=== PATIENT | female | born 1930 | race African-American/Black ===

== ENCOUNTER 2016-10-03 02:13 | Inpatient (IN) | payer OTHER ==
--- NOTE | ~2016-10-03 | DS ---
Discharge Summary [facility] [address] [place]. [address] NAME: JAYLON DELGADO : 30 STATUS : ADM IN [facility]#: [id number] AGE: 86 ADM/REG DATE : 10/03/16 MR#: [id number] REPORT SERV DATE: 10/07/16 DICTATED BY: MADDIE BOYD DATE: 10/06/16 REPORT STATUS : Draft TRANSCRIBED BY: MODL DATE: 10/06/16 ADMISSION DATE: 10/03/2016 DISCHARGE DATE: DIAGNOSES OF DISCHARGE: 1. Urinary tract infection with sepsis with urine cultures growing Proteus mirabilis, resolved. 2. Hypotension secondary to above, resolved. 3. Hypertension. 4. Diabetes type 2. 5. Hypothyroidism. 6. Anemia. 7. History of diabetic foot ulcers. 8. Dementia. 9. Bed-bound. CONSULTANTS ON THE CASE: Urology. PROCEDURE DONE DURING THIS HOSPITALIZATION: None. TESTS DONE DURING THIS HOSPITALIZATION: Include a CT scan of the abdomen and pelvis without contrast showing no evidence of or GI obstruction. Also chest x-ray, portable, on 10/05/2016 show no acute cardiopulmonary abnormalities. Blood cultures on 10/03/2016 does not show any acute abnormalities that could be identified. Urine cultures have shown Proteus mirabilis. HOSPITAL COURSE: This is a very pleasant 86-year-old female. She does have a history of dementia and also history of diabetes, hypothyroidism, prior history of diabetic foot ulcers, urinary tract infections, peripheral neuropathy, significant debility and immobility, and bed-bound, presenting to [facility] on 10/03/2016 with encephalopathy and urinary obstruction. For further details, please see history and physical of Dr. Desmond Edgar. The patient has been admitted with UTI sepsis. She has been admitted initially to ICU, where she has been treated initially for short period of time with pressors which have been discontinued. Her Weir catheter has been replaced, and Urology consult has been requested as well. The patient developed at the beginning acute renal insufficiency, but with vigorous IV hydration, that has resolved. The patient has been subsequently transferred to the floor. Urine cultures grew Proteus mirabilis, initially being on broad- spectrum antibiotics. That has been continued with cefepime, and she as I said has been transferred to the floor. The patient on the floor continued to improve. She has been followed by Urology during this hospitalization, who recommended change in the Weir catheter before discharge and also change every 3 or 4 weeks to prevent other urinary tract infections. On 10/06/2016, the patient has been ready for discharge to her long term facility with oral antibiotics. Discharge Summary [address] [address] NAME: JAYLON DELGADO : 30 STATUS : ADM IN [facility]#: [id number] AGE: 86 ADM/REG DATE : 10/03/16 MR#: [id number] REPORT SERV DATE: 10/07/16 DICTATED BY: MADDIE BOYD DATE: 10/06/16 REPORT STATUS : Draft TRANSCRIBED BY: AGUSTIN DATE: 10/06/16 MEDICATIONS AT DISCHARGE: Include ascorbic acid 500 p.o. b.i.d., aspirin 81 p.o. daily, Voltaren gel apply to bilateral knees, Coreg 6.25 p.o. b.i.d., vitamin D 400 units every day every morning, Colace 100 p.o. b.i.d., Neurontin 300 at bed time, also insulin sliding scale, Mevacor 10 mg with supper, multivitamin 1 tablet p.o. daily, Protonix 40 mg p.o. daily, hydralazine 25 p.o. b.i.d., milk of magnesia p.r.n., also Dulcolax p.r.n., as well as tramadol p.r.n., and Augmentin 875 p.o. b.i.d. for seven days. DISCHARGE INSTRUCTION: The patient has been advised to follow up with her primary care provider in one week after discharge. That has been discussed extensively with the patient. All the questions have been answered in full. RUSTY/AGUSTIN Maddie Boyd M.D. / [id number] CC: Jj Herrera KATRINA V.
--- NOTE | ~2016-10-03 | HP ---
History And Physical [address] [place]. [address] NAME: JAYLON DELGADO : 30 STATUS : ADM IN PAT#: [id number] AGE: 86 ADM/REG DATE : 10/03/16 MR#: [id number] REPORT SERV DATE: 10/03/16 DICTATED BY: JUVENCIO SWENSON DATE: 10/03/16 REPORT STATUS : Draft TRANSCRIBED BY: MODL DATE: 10/03/16 DATE OF ADMISSION: 10/03/2016 CHIEF COMPLAINT: An 86-year-old female, presenting with urinary obstruction and encephalopathy. HISTORY OF PRESENT ILLNESS: The patient's history could only be obtained through review of [facility] medical records and limited medical records obtained from [facility]. The patient unable to give a history herself. I attempted to call her nephew, Belia Estrada, and her friend, Keya Cerrato, but there was no response on either of those contact phone numbers. The patient apparently on the night of admission became very lethargic, incoherent, more confused, and she was transferred to the hospital for further evaluation. Otherwise, history of presenting illness is unknown and unobtainable because of the patient's condition. REVIEW OF SYSTEMS: Otherwise review of systems was unobtainable because of the patient's condition. PAST MEDICAL HISTORY: 1. Dementia. 2. Diabetes. 3. Hypothyroidism. 4. Left bundle-branch block. 5. Hypertension. 6. Anemia. 7. Diabetic foot ulcers. 8. Urinary retention. 9. Decubitus of the buttocks. 10.Urinary tract infection. 11.Neuropathy. 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 13.Vitamin D deficiency. PAST SURGICAL HISTORY: Hysterectomy. ALLERGIES: NO KNOWN DRUG ALLERGIES. SOCIAL HISTORY: Quit smoking. No alcohol use. Resides at [facility]. She had an adopted daughter. She has been a for 20 years. Her listed family contact is a nephew, Belia Estrada. FAMILY HISTORY: Father with congestive heart failure. Mother with pneumonia. History And Physical [address] [place]. [address] NAME: JAYLON DELGADO : 30 STATUS : ADM IN PAT#: [id number] AGE: 86 ADM/REG DATE : 10/03/16 MR#: [id number] REPORT SERV DATE: 10/03/16 DICTATED BY: JUVENCIO SWENSON DATE: 10/03/16 REPORT STATUS : Draft TRANSCRIBED BY: AGUSTIN DATE: 10/03/16 CURRENT MEDICATIONS: Include vitamin C, aspirin 81 mg p.o. daily, Dulcolax, Coreg 6.25 mg p.o. b.i.d., vitamin D, Voltaren four times a day, Cardizem CD 240 mg p.o. daily, Colace 100 mg p.o. b.i.d., Neurontin 300 mg p.o. at bedtime, hydralazine 25 mg p.o. b.i.d., sliding- scale insulin, lovastatin 10 mg p.o. daily, milk of magnesia, multivitamin, Protonix 40 mg p.o. daily, and tramadol 50 mg p.o. b.i.d. PHYSICAL EXAMINATION: VITAL SIGNS: Temperature 99.2, pulse 81, blood pressure 100/93, respiratory rate 18, and O2 saturation 95% on room air. GENERAL: A very ill-appearing female. She does not appear in any distress, just very incoherent, lethargic, somnolent, and difficult to arouse. HEENT: Pupils equal, round, and reactive to light. No conjunctival pallor. No scleral icterus. Nares are patent. Oropharynx is clear of obstruction. Dry mucous membranes. NECK: Trachea midline. No thyromegaly. LYMPH: No cervical lymphadenopathy. No supraclavicular lymphadenopathy. No appreciable inguinal lymphadenopathy. RESPIRATORY: Clear to auscultation at bases. No wheezes, rales, or rhonchi. Normal respiratory effort. CARDIOVASCULAR: Regular rate and rhythm. No murmurs, rubs, or gallops. No extremity edema is appreciated. ABDOMEN: Significant suprapubic abdominal discomfort and bilateral flank tenderness. There is no guarding, no rebound. Nondistended. No hepatosplenomegaly. DERMATOLOGICAL: Warm and dry extremities. No pallor, no cyanosis. Significant tenting of the skin to suggest dehydration. PSYCHIATRIC: Difficult to arouse but she does arouse eventually to persistent vocal stimuli. She is irritable and disoriented x3. Flat affect. LABORATORY DATA: White blood cell count 12.1 with 36% bands, hemoglobin 12, hematocrit 38, and platelets 289. Sodium 140, potassium 4.8, chloride 105, bicarb 19, BUN 39, creatinine 3.57, and glucose 172. Urinalysis shows large leukocyte esterase and greater than 182 white blood cells, procalcitonin 6.09. Lactic acid 2.1. INR 1.4. Lipase 47. AST 48, ALT 25, alkaline phosphatase 108, and total bilirubin 0.8. STUDIES: 1. Chest x-ray by my own evaluation shows no acute cardiopulmonary process. 2. EKG by my own evaluation shows sinus rhythm, no major abnormalities. 3. A CT scan of the abdomen shows a distended bladder despite Weir catheter placement with significant cystitis changes, possible left rectus muscle infection as well. ASSESSMENT AND PLAN: 1. Severe sepsis with acute renal failure. White blood cell count of 12.1, 36% bands, and encephalopathy. While patient was being evaluated in the emergency department, her blood pressure was consistently hypotensive. The patient had mean arterial pressure mostly in the 40s and 50s at one point and systolic blood pressure that was consistently in the 80s. Therefore, I discussed the case with Dr. Ortez, critical care physician, for transfer to the medical intensive care unit and asked for assistance from Dr. Juvencio Caballero, for central line placement in the emergency department and to [facility] [address] [address] NAME: JAYLON DELGADO : 30 STATUS : ADM IN [facility]#: [id number] AGE: 86 ADM/REG DATE : 10/03/16 MR#: [id number] REPORT SERV DATE: 10/03/16 DICTATED BY: JUVENCIO SWENSON DATE: 10/03/16 REPORT STATUS : Draft TRANSCRIBED BY: MODL DATE: 10/03/16 begin Levophed drip for support of blood pressure. We will check blood cultures plus check bladder pus culture and place on broad IV antibiotics including cefepime and vancomycin. 2. Cystitis with a dense purulent bladder material. After we took out patient's Weir catheter, I was there to witness copious amount of pudding consistency pus with pressure coming out of the urethra. Then, a Weir catheter was placed and about 800 cc of post void residual of still pudding consistency pus drained out of the bladder into the bag and then it was followed by a grape jelly consistency and color drainage as well. I did discuss the case with Dr. Villela, urologist, who agreed to see patient on business line controller rounds. We will check urine culture of course. 3. Acute renal failure. Relieved bladder obstruction. Place on IV fluids aggressively. 4. Dementia. 5. Diabetes. Home insulin regimen plus sliding scale insulin. 6. DNR status ?. The patient was previously DNR while in the hospital, but we definitely have information from patient's stay at [facility] that she is to be a full code now. There was no answer when attempting to contact family and friend contacts. KPL/MODL Juvencio Swenson M.D. / [id number] CC: MD Ana Yip
--- NOTE | ~2016-10-03 | DS ---
Discharge Summary [facility] [address] [place]. [address] NAME: JAYLON DELGADO : 30 STATUS : DIS IN PAT#: [id number] AGE: 86 ADM/REG DATE : 10/03/16 MR#: [id number] REPORT SERV DATE: 10/10/16 DICTATED BY: MADDIE BOYD DATE: 10/09/16 REPORT STATUS : Draft TRANSCRIBED BY: MODL DATE: 10/09/16 ADMISSION DATE: 10/03/2016 DISCHARGE DATE: 10/09/2016 DIAGNOSES OF DISCHARGE: 1. Urinary tract infection with sepsis on admission with urine cultures growing Proteus mirabilis. 2. Hypotension secondary to above. 3. Hypertension. 4. Diabetes type 2. 5. Acute kidney injury, resolved. 6. Diabetes type 2. 7. Hypothyroidism. 8. Anemia. 9. Dementia. 10.Debility bed-bound. CONSULTANTS ON THE CASE: Urology, Giovany Villela M.D., and Critical Care. PROCEDURES DONE DURING THIS HOSPITALIZATION: None. TESTS DONE DURING THIS HOSPITALIZATION: CT of the abdomen and pelvis without contrast showing no evidence of GI or obstruction. Chest x-ray, portable, on 10/05/2016, no acute cardiopulmonary abnormalities. Urine culture has grown Proteus mirabilis. Blood cultures on 10/03/2016 does not show any acute abnormalities identified. HOSPITAL COURSE: This is a very pleasant, 86-year-old female with a history of hypothyroidism, diabetes, dementia, recurrent urinary tract infection, peripheral neuropathy, significant debility and immobility bed-bound with a chronic Weir catheter presenting to [facility] and admitted on 10/07/2016 with encephalopathy and urinary tract infection. For further details, please see history and physical exam of Dr. Desmond Edgar. The patient has been admitted to ICU initially where she has been receiving short period of time pressors that have been weaned off. She had a Weir catheter that has been replaced, and a Urology consult with Dr. Villela has been requested. The patient had acute kidney injury on admission that is completely resolved with vigorous IV hydration and treatment of the urinary tract infection. The patient has been transferred to the floor, continued on cefepime. Her Weir catheter has been changed before discharge, and on 10/09/2016, the patient has been ready and accepted to be discharged home to her long term facility on oral antibiotics. Recommendation of Dr. Villela would be to change her Weir catheter every 3 weeks at the patient institution to prevent recurrent urinary tract infections. MEDICATIONS AT DISCHARGE: Include vitamin C 500 p.o. b.i.d., aspirin 81 p.o. daily, Voltaren Discharge Summary [facility] [address] [place]. [address] NAME: JAYLON DELGADO : 30 STATUS : DIS IN PAT#: [id number] AGE: 86 ADM/REG DATE : 10/03/16 MR#: [id number] REPORT SERV DATE: 10/10/16 DICTATED BY: MADDIE BOYD DATE: 10/09/16 REPORT STATUS : Draft TRANSCRIBED BY: AGUSTIN DATE: 10/09/16 gel 4 g topical 4 times a day, Coreg 6.25 p.o. b.i.d., vitamin D 4000 units every morning, Colace 100 twice a day, Neurontin 300 at bedtime, insulin sliding scale, Mevacor 10 mg with supper, multivitamin one tablet p.o. daily, Protonix 40 p.o. daily, hydralazine 25 p.o. b.i.d., hold for blood pressure systolic less or equal to 130, also milk of magnesia p.r.n., Dulcolax suppository p.r.n., Zofran p.r.n., tramadol p.r.n., Cardizem CD 240 p.o. daily, hold for pressure less or equal 90 and/or heart rate less or equal than 60, Augmentin 875 p.o. b.i.d. x7 days, and Florastor one capsule p.o. b.i.d. for seven days. That has been discussed extensively with the patient. All the questions have been answered in full. We recommend primary care provider follow up in one week and Weir catheter again to be changed every 3 weeks at the patient's institution as is per Dr. Villela, Neurology. This has been discussed extensively with the patient. All the questions have been answered in full. I have spent more than 30 minutes at discharging patient Barrett Ontiveros, medication reconciliation, discharge summary, discharge instruction, and written prescriptions as well. CF/MODL Maddie Boyd M.D. / [id number] CC: Jj Herrera
[2016-10-03 01:47] LABS: ASCORBIC ACID (UR NOT ORDER) NEG (NEG); BILIRUBIN, URINE NEGATIVE (NEG); ER URINALYSIS TAT 0 Hrs 00 Mins; KETONE, URINE NEGATIVE (NEG); LEUKOCYTE ESTERASE(NOT OR LARGE (NEG); NITRITE (URINE) NEG (NEG); WBC (NOT ORDERED) (RFLEX) > 182 (0-5)
[~2016-10-03 02:13] MED LIST: *UNABLE1; 8 HOUR650 MG PO; ACET500CAP PO; AMOXIL500 MG PO; APRES25 PO; ARICEPT5 PO; BAC PO; BION TEARS OPH; BISR PR; BLOOD PRESSURE RX; CARDCD240 PO; CARTIA XT240 MG/24 PO; CENTRUM PO; CIP2 PO; COREG6 PO; DEMA20 PO; DIOVAN HC2 PO; DIOVAN320 MG PO; DSS PO; ELDERTONIC PO; ENEMA PR; GLUCOPHAGE1000 MG PO; GLUCPH PO; HUMALOG SC; HUMALOGPEN SC; ICY HOT51 TOP; KLOR-CON M2020 MEQ PO; KLOR-CON20 MEQ PO; LANTUS SC; LANTUSCART SC; LOP50 PO; MEVACOR PO; MEVACOR10 MG PO; MOBIC7.5 PO; MOMUD PO; MULTIVIT/MIN PO; NEUR300 PO; NEURONTIN PO; NYS500UDL PO; PLAVIX PO; PT DENIES HOME MEDS; SANTYL250 MG/GM TOP; ULTRAM50 PO; VITAMIN B-12 OTC PO; VITAMIN B-121000 MC1 PO; VITAMIN B-121000 MC1 SL; VITAMIN D OTC PO; VITAMIN D400 UNI1 PO; VITC500 PO; VOLTAREN1 % TOP
[2016-10-03 02:15] LABS: BASOPHILS 0.2 %; BASOPHILS ABSOLUTE 0.02 10/3/uL (0.0-0.16); EOSINOPHILS 0 %; HEMOGLOBIN 12.3 g/dL (12.0-16.0); IMMATURE GRANULOCYTES 1.5 %; IMMATURE GRANULOCYTES ABSOLUTE 0.18 10/3/uL (0.0-0.11); LYMPHOCYTES 6.7 %; LYMPHOCYTES ABSOLUTE 0.81 10/3/uL (0.67-4.30); MEAN CORPUS HGB CONC 32.7 g/dL (32.0-36.0); MEAN CORPUSCULAR HEMOGLOB 30.7 pg (26.0-34.0); MEAN CORPUSCULAR VOLUME 93.8 fL (80-100); MEAN PLATELET VOLUME 8.9 fL (9.2-13.0); MONOCYTES 8.4 %; MONOCYTES ABSOLUTE 1.02 10/3/uL (0.21-1.20); NEUTROPHILS 83.2 %; NEUTROPHILS ABSOLUTE 10.08 10/3/uL (2.02-8.40); RBC DISTRIBUTION WIDTH 16.1 % (12.0-16.0); RED CELL COUNT 4.01 10/6/uL (4.0-5.6)
[2016-10-03 02:18] LABS: ER CBC TAT 0 Hrs 10 MinsNP; HEMATOCRIT 37.6 % (36.0-48.0); MANUAL DIFF NO %; PLATELET COUNT 289 10/3/uL (150-400); WHITE BLOOD CELLS 12.1 10/3/uL (4.5-10.5)
[2016-10-03 02:29] LABS: INTERNATIONAL NORMAL RATI 1.4 UNITS (-); PARTIAL THROMBO TIME 27.5 SEC (22.5-37.2)
[2016-10-03 02:30] LABS: PROTIME (NOT ORD) 16.6 SEC (12.0-14.5)
[2016-10-03 02:32] LABS: ALBUMIN 2.1 G/DL (3.5-5.0); SGOT(AST) 48 U/L (5-40); SGPT(ALT) 25 U/L (5-65); TOTAL PROTEIN 7.1 G/DL (6.0-8.5)
[2016-10-03 02:33] LABS: LACTATE 2.1 MMOL/L (0.3-2.4)
[2016-10-03 02:34] LABS: A/G RATIO 0.4 (0.7-1.9); ALKALINE PHOSPHATASE 108 U/L (45-117); BUN (BLOOD UREA NITROGEN) 39 MG/DL (6-23); CHLORIDE, SERUM 105 MMOL/L (96-112); CO2 (CARBON DIOXIDE) 19 MMOL/L (24-34); CREATININE 3.57 MG/DL (0.55-1.02); GFR AFRICAN AMERICAN 13 ML/MIN (>=60); GFR NON AFRICAN AMERICAN 11 ML/MIN (>=60); GLUCOSE, SERUM 172 MG/DL (60-99); POTASSIUM, SERUM 4.8 MMOL/L (3.5-5.3); SODIUM, SERUM 140 MMOL/L (135-148); TOTAL BILIRUBIN 0.8 MG/DL (0-1.2)
[2016-10-03 02:50] LABS: BAND NEUTROPHILS 36 %; BURR CELLS 1+ (3-10/OIF) (0-2/OIF); ER DIFF TAT 0 Hrs 42 Mins; IMMATURE GRANS ABSOLUTE (CALC) 0.24 10/3/uL (0.0-0.11); LYMPHOCYTES 5 %; LYMPHOCYTES ABSOLUTE (CALC) 0.61 10/3/uL (0.67-4.30); METAMYELOCYTES 2 %; MONOCYTES 10 %; MONOCYTES ABSOLUTE (CALC) 1.21 10/3/uL (0.21-1.20); NEUTROPHILS ABSOLUTE (CALC) 10.04 10/3/uL (2.02-8.40); PLATELET ESTIMATE ADQ (ADEQUATE); SEGMENTED NEUTROPHIL (0) 47 %; TOTAL NUCLEATED CELLS 100; TOXIC GRANULATION 1+
[2016-10-03 03:10] LABS: PROCALCITONIN 6.09 ng/mL (<0.5)
[2016-10-03] MEDS ORDERED: HALF81 PO (04:09)
[2016-10-03] MEDS ORDERED: COREG6 PO (04:10)
[2016-10-03] MEDS ORDERED: CARDCD240 PO (04:11)
[2016-10-03] MEDS ORDERED: VOLTAREN1 % TOP (04:11)
[2016-10-03] MEDS ORDERED: DSS PO (04:13)
[2016-10-03] MEDS ORDERED: NEUR300 PO (04:14)
[2016-10-03] MEDS ORDERED: PROTONIX PO (04:15)
[2016-10-03] MEDS ORDERED: MULTIVIT/MIN PO (04:15)
[2016-10-03] MEDS ORDERED: HUMALOGPEN SC (04:15)
[2016-10-03] MEDS ORDERED: VITC500 PO (04:16)
[2016-10-03] MEDS ORDERED: APRES25 PO (04:16)
[2016-10-03] MEDS ORDERED: MEVACOR10 MG PO (04:16)
[2016-10-03] MEDS ORDERED: VITAMIN D400 UNI1 PO (04:17)
[2016-10-03] MEDS ORDERED: MOMUD PO (04:18)
[2016-10-03] MEDS ORDERED: BISR PR (04:18)
[2016-10-03] MEDS ORDERED: ULTRAM50 PO (04:19)
[2016-10-03 12:43] LABS: MEAN CORPUS HGB CONC 31.8 g/dL (32.0-36.0); MEAN CORPUSCULAR HEMOGLOB 29.9 pg (26.0-34.0); MEAN CORPUSCULAR VOLUME 94.1 fL (80-100); MEAN PLATELET VOLUME 8.5 fL (9.2-13.0); PLATELET COUNT 249 10/3/uL (150-400); RBC DISTRIBUTION WIDTH 16.1 % (12.0-16.0); WHITE BLOOD CELLS 10.3 10/3/uL (4.5-10.5)
[2016-10-03 12:44] LABS: HEMATOCRIT 28.6 % (36.0-48.0); HEMOGLOBIN 9.1 g/dL (12.0-16.0); MANUAL DIFF YES %; RED CELL COUNT 3.04 10/6/uL (4.0-5.6)
[2016-10-03 12:52] LABS: PARTIAL THROMBO TIME 32.6 SEC (22.5-37.2)
[2016-10-03 13:07] LABS: BUN (BLOOD UREA NITROGEN) 38 MG/DL (6-23); CALCIUM, SERUM 8.1 MG/DL (8.5-10.4); CHLORIDE, SERUM 111 MMOL/L (96-112); CO2 (CARBON DIOXIDE) 21 MMOL/L (24-34); GLUCOSE, SERUM 200 MG/DL (60-99); SGOT(AST) 35 U/L (5-40); SGPT(ALT) 23 U/L (5-65); SODIUM, SERUM 143 MMOL/L (135-148); TOTAL BILIRUBIN 0.9 MG/DL (0-1.2); TOTAL PROTEIN 6.8 G/DL (6.0-8.5); TROPONIN I <0.02 NG/ML (<0.05)
[2016-10-03 13:08] LABS: A/G RATIO 0.9 (0.7-1.9); ALBUMIN 3.2 G/DL (3.5-5.0); ALKALINE PHOSPHATASE 77 U/L (45-117); CREATININE 2.42 MG/DL (0.55-1.02); GFR AFRICAN AMERICAN 20 ML/MIN (>=60); GFR NON AFRICAN AMERICAN 18 ML/MIN (>=60); GLOBULIN 3.6 G/DL (2.5-4.1)
[2016-10-03 13:14] LABS: BAND NEUTROPHILS 7 %; LYMPHOCYTES 15 %; LYMPHOCYTES ABSOLUTE (CALC) 1.55 10/3/uL (0.67-4.30); MONOCYTES 3 %; MONOCYTES ABSOLUTE (CALC) 0.31 10/3/uL (0.21-1.20); NEUTROPHILS ABSOLUTE (CALC) 8.45 10/3/uL (2.02-8.40); PLATELET ESTIMATE ADQ (ADEQUATE); RBC MORPHOLOGY NORM (NORMAL); SEGMENTED NEUTROPHIL (0) 75 %; TOTAL NUCLEATED CELLS 100
[2016-10-04 09:38] LABS: HEMATOCRIT 28.1 % (36.0-48.0); HEMOGLOBIN 8.9 g/dL (12.0-16.0); MANUAL DIFF YES %; MEAN CORPUS HGB CONC 31.7 g/dL (32.0-36.0); MEAN CORPUSCULAR HEMOGLOB 29.6 pg (26.0-34.0); MEAN CORPUSCULAR VOLUME 93.4 fL (80-100); MEAN PLATELET VOLUME 8.6 fL (9.2-13.0); PLATELET COUNT 249 10/3/uL (150-400); RBC DISTRIBUTION WIDTH 15.9 % (12.0-16.0); RED CELL COUNT 3.01 10/6/uL (4.0-5.6); WHITE BLOOD CELLS 10.3 10/3/uL (4.5-10.5)
[2016-10-04 09:57] LABS: FREE T4 1.36 NG/DL (0.76-1.46); PHOSPHORUS, SERUM 2.6 MG/DL (2.5-4.5)
[2016-10-04 09:59] LABS: BAND NEUTROPHILS 22 %; LYMPHOCYTES 9 %; LYMPHOCYTES ABSOLUTE (CALC) 0.93 10/3/uL (0.67-4.30); METAMYELOCYTES 1 %; MONOCYTES 1 %; NEUTROPHILS ABSOLUTE (CALC) 9.17 10/3/uL (2.02-8.40); PLATELET ESTIMATE ADQ (ADEQUATE); SEGMENTED NEUTROPHIL (0) 67 %; TOTAL NUCLEATED CELLS 100; TOXIC GRANULATION 1+
[2016-10-04 10:00] LABS: POLYCHROMASIA 1+ (2-5/OIF) (0-1/OIF)
[2016-10-04 11:12] LABS: BUN (BLOOD UREA NITROGEN) 28 MG/DL (6-23); CHLORIDE, SERUM 119 MMOL/L (96-112); CO2 (CARBON DIOXIDE) 19 MMOL/L (24-34); CREATININE 1.02 MG/DL (0.55-1.02); GFR AFRICAN AMERICAN 58 ML/MIN (>=60); GFR NON AFRICAN AMERICAN 50 ML/MIN (>=60); GLUCOSE, SERUM 111 MG/DL (60-99); POTASSIUM, SERUM 3.1 MMOL/L (3.5-5.3); SODIUM, SERUM 149 MMOL/L (135-148)
[2016-10-04 17:49] LABS: CHLORIDE, SERUM 118 MMOL/L (96-112); CO2 (CARBON DIOXIDE) 19 MMOL/L (24-34); CREATININE 0.79 MG/DL (0.55-1.02); GFR AFRICAN AMERICAN 79 ML/MIN (>=60); GFR NON AFRICAN AMERICAN 68 ML/MIN (>=60); GLUCOSE, SERUM 131 MG/DL (60-99); POTASSIUM, SERUM 3.6 MMOL/L (3.5-5.3); SODIUM, SERUM 146 MMOL/L (135-148)
[2016-10-04 18:01] LABS: BUN (BLOOD UREA NITROGEN) 24 MG/DL (6-23)
[2016-10-05 07:02] LABS: BASOPHILS 0.2 %; BASOPHILS ABSOLUTE 0.02 10/3/uL (0.0-0.16); EOSINOPHILS 2.7 %; EOSINOPHILS ABSOLUTE 0.32 10/3/uL (0.0-0.53); HEMATOCRIT 29.5 % (36.0-48.0); HEMOGLOBIN 9.6 g/dL (12.0-16.0); IMMATURE GRANULOCYTES 3.7 %; IMMATURE GRANULOCYTES ABSOLUTE 0.43 10/3/uL (0.0-0.11); LYMPHOCYTES 11.3 %; LYMPHOCYTES ABSOLUTE 1.32 10/3/uL (0.67-4.30); MEAN CORPUS HGB CONC 32.5 g/dL (32.0-36.0); MEAN CORPUSCULAR HEMOGLOB 30.5 pg (26.0-34.0); MEAN CORPUSCULAR VOLUME 93.7 fL (80-100); MEAN PLATELET VOLUME 8.9 fL (9.2-13.0); MONOCYTES 4.2 %; MONOCYTES ABSOLUTE 0.49 10/3/uL (0.21-1.20); NEUTROPHILS 77.9 %; PLATELET COUNT 277 10/3/uL (150-400); RED CELL COUNT 3.15 10/6/uL (4.0-5.6); WHITE BLOOD CELLS 11.7 10/3/uL (4.5-10.5)
[2016-10-05 07:08] LABS: MANUAL DIFF NO %
[2016-10-05 07:20] LABS: CALCIUM, SERUM 8.3 MG/DL (8.5-10.4); CHLORIDE, SERUM 118 MMOL/L (96-112); CO2 (CARBON DIOXIDE) 18 MMOL/L (24-34); CREATININE 0.61 MG/DL (0.55-1.02); GFR AFRICAN AMERICAN 95 ML/MIN (>=60); GFR NON AFRICAN AMERICAN 82 ML/MIN (>=60); GLUCOSE, SERUM 153 MG/DL (60-99); POTASSIUM, SERUM 3.8 MMOL/L (3.5-5.3); SODIUM, SERUM 147 MMOL/L (135-148)
[2016-10-05 07:21] LABS: BUN (BLOOD UREA NITROGEN) 19 MG/DL (6-23); PHOSPHORUS, SERUM 1.5 MG/DL (2.5-4.5)
[2016-10-05 10:00] LABS: PROCALCITONIN 3.34 ng/mL (<0.5)
[2016-10-06 07:06] LABS: HEMATOCRIT 29.6 % (36.0-48.0); HEMOGLOBIN 9.6 g/dL (12.0-16.0); MEAN CORPUS HGB CONC 32.4 g/dL (32.0-36.0); MEAN CORPUSCULAR HEMOGLOB 29.3 pg (26.0-34.0); MEAN PLATELET VOLUME 8.7 fL (9.2-13.0); PLATELET COUNT 286 10/3/uL (150-400); RBC DISTRIBUTION WIDTH 15.8 % (12.0-16.0); RED CELL COUNT 3.28 10/6/uL (4.0-5.6); WHITE BLOOD CELLS 8.9 10/3/uL (4.5-10.5)
[2016-10-06 07:08] LABS: MANUAL DIFF YES %; MEAN CORPUSCULAR VOLUME 90.2 fL (80-100)
[2016-10-06 07:24] LABS: BUN (BLOOD UREA NITROGEN) 12 MG/DL (6-23); CALCIUM, SERUM 8.1 MG/DL (8.5-10.4); CHLORIDE, SERUM 111 MMOL/L (96-112); CO2 (CARBON DIOXIDE) 21 MMOL/L (24-34); CREATININE 0.48 MG/DL (0.55-1.02); GFR AFRICAN AMERICAN 103 ML/MIN (>=60); GFR NON AFRICAN AMERICAN 89 ML/MIN (>=60); GLUCOSE, SERUM 137 MG/DL (60-99); POTASSIUM, SERUM 3.6 MMOL/L (3.5-5.3); SODIUM, SERUM 143 MMOL/L (135-148)
[2016-10-06 07:36] LABS: BAND NEUTROPHILS 2 %; EOSINOPHILS 4 %; EOSINOPHILS ABSOLUTE (CALC) 0.36 10/3/uL (0.0-0.53); IMMATURE GRANS ABSOLUTE (CALC) 0.27 10/3/uL (0.0-0.11); LYMPHOCYTES 16 %; LYMPHOCYTES ABSOLUTE (CALC) 1.42 10/3/uL (0.67-4.30); METAMYELOCYTES 3 %; MONOCYTES 9 %; NEUTROPHILS ABSOLUTE (CALC) 6.05 10/3/uL (2.02-8.40); SEGMENTED NEUTROPHIL (0) 66 %; TOTAL NUCLEATED CELLS 100
[2016-10-06 07:37] LABS: PLATELET ESTIMATE ADQ (ADEQUATE); RBC MORPHOLOGY NORM (NORMAL)
[2016-10-06 09:25] LABS: PROCALCITONIN 1.64 ng/mL (<0.5)
[2016-10-07 07:13] LABS: HEMATOCRIT 30.2 % (36.0-48.0); HEMOGLOBIN 10.2 g/dL (12.0-16.0); MEAN CORPUS HGB CONC 33.8 g/dL (32.0-36.0); MEAN CORPUSCULAR HEMOGLOB 30.6 pg (26.0-34.0); MEAN CORPUSCULAR VOLUME 90.7 fL (80-100); MEAN PLATELET VOLUME 8.7 fL (9.2-13.0); PLATELET COUNT 265 10/3/uL (150-400); RBC DISTRIBUTION WIDTH 15.4 % (12.0-16.0); RED CELL COUNT 3.33 10/6/uL (4.0-5.6); WHITE BLOOD CELLS 8.5 10/3/uL (4.5-10.5)
[2016-10-07 07:18] LABS: MANUAL DIFF YES %
[2016-10-07 07:26] LABS: BUN (BLOOD UREA NITROGEN) 8 MG/DL (6-23); CALCIUM, SERUM 8.1 MG/DL (8.5-10.4); CHLORIDE, SERUM 107 MMOL/L (96-112); CO2 (CARBON DIOXIDE) 21 MMOL/L (24-34); GFR AFRICAN AMERICAN 109 ML/MIN (>=60); GFR NON AFRICAN AMERICAN 94 ML/MIN (>=60); GLUCOSE, SERUM 114 MG/DL (60-99); POTASSIUM, SERUM 3.5 MMOL/L (3.5-5.3); SODIUM, SERUM 139 MMOL/L (135-148)
[2016-10-07 07:42] LABS: BAND NEUTROPHILS 5 %; EOSINOPHILS 4 %; EOSINOPHILS ABSOLUTE (CALC) 0.34 10/3/uL (0.0-0.53); LYMPHOCYTES 17 %; LYMPHOCYTES ABSOLUTE (CALC) 1.45 10/3/uL (0.67-4.30); METAMYELOCYTES 7 %; MONOCYTES 5 %; MONOCYTES ABSOLUTE (CALC) 0.43 10/3/uL (0.21-1.20); PLATELET ESTIMATE ADQ (ADEQUATE); RBC MORPHOLOGY NORM (NORMAL); SEGMENTED NEUTROPHIL (0) 62 %; TOTAL NUCLEATED CELLS 100
[2016-10-08 04:27] LABS: HEMATOCRIT 29.5 % (36.0-48.0); MANUAL DIFF YES %; MEAN CORPUS HGB CONC 33.9 g/dL (32.0-36.0); MEAN CORPUSCULAR HEMOGLOB 30.9 pg (26.0-34.0); MEAN PLATELET VOLUME 8.6 fL (9.2-13.0); PLATELET COUNT 278 10/3/uL (150-400); RBC DISTRIBUTION WIDTH 15.3 % (12.0-16.0); RED CELL COUNT 3.24 10/6/uL (4.0-5.6); WHITE BLOOD CELLS 9.7 10/3/uL (4.5-10.5)
[2016-10-08 04:41] LABS: BUN (BLOOD UREA NITROGEN) 7 MG/DL (6-23); CALCIUM, SERUM 8.2 MG/DL (8.5-10.4); CHLORIDE, SERUM 109 MMOL/L (96-112); CO2 (CARBON DIOXIDE) 21 MMOL/L (24-34); CREATININE 0.43 MG/DL (0.55-1.02); GFR AFRICAN AMERICAN 107 ML/MIN (>=60); GFR NON AFRICAN AMERICAN 92 ML/MIN (>=60); POTASSIUM, SERUM 3.5 MMOL/L (3.5-5.3); SODIUM, SERUM 141 MMOL/L (135-148)
[2016-10-08 04:43] LABS: GLUCOSE, SERUM 138 MG/DL (60-99)
[2016-10-08 04:55] LABS: BAND NEUTROPHILS 12 %; EOSINOPHILS 3 %; EOSINOPHILS ABSOLUTE (CALC) 0.29 10/3/uL (0.0-0.53); IMMATURE GRANS ABSOLUTE (CALC) 0.78 10/3/uL (0.0-0.11); LYMPHOCYTES 14 %; LYMPHOCYTES ABSOLUTE (CALC) 1.36 10/3/uL (0.67-4.30); METAMYELOCYTES 6 %; MONOCYTES 1 %; MYELOCYTES 2 %; NEUTROPHILS ABSOLUTE (CALC) 7.18 10/3/uL (2.02-8.40); PLATELET ESTIMATE ADQ (ADEQUATE); SEGMENTED NEUTROPHIL (0) 62 %; TOTAL NUCLEATED CELLS 100
[2016-10-08 04:56] LABS: POLYCHROMASIA 1+ (2-5/OIF) (0-1/OIF); TOXIC GRANULATION 1+
[2016-10-09 07:33] LABS: BUN (BLOOD UREA NITROGEN) 5 MG/DL (6-23); CALCIUM, SERUM 8.6 MG/DL (8.5-10.4); CHLORIDE, SERUM 105 MMOL/L (96-112); CO2 (CARBON DIOXIDE) 22 MMOL/L (24-34); GFR AFRICAN AMERICAN 109 ML/MIN (>=60); GFR NON AFRICAN AMERICAN 94 ML/MIN (>=60); GLUCOSE, SERUM 120 MG/DL (60-99); POTASSIUM, SERUM 3.3 MMOL/L (3.5-5.3); SODIUM, SERUM 138 MMOL/L (135-148)
== END 2016-10-09 15:04 | DRG 698 ==
LOC: ER 02:13 → MIC 04:52 → 5SO 10-04 22:51
PROVIDERS: Internal Medicine; Internal Medicine Critical Care Medicine; Specialist
DX: T83.518A Infection and inflammatory reaction due to other urinary catheter, initial encounter (principal); A41.89 Other specified sepsis; G93.40 Encephalopathy, unspecified; N17.9 Acute kidney failure, unspecified; N39.0 Urinary tract infection, site not specified; F03.90 Unspecified dementia, unspecified severity, without behavioral disturbance, psychotic disturbance, mood disturbance, and anxiety; E11.9 Type 2 diabetes mellitus without complications; I10 Essential (primary) hypertension; B96.4 Proteus (mirabilis) (morganii) as the cause of diseases classified elsewhere; R65.20 Severe sepsis without septic shock; E03.9 Hypothyroidism, unspecified; I44.7 Left bundle-branch block, unspecified; E55.9 Vitamin D deficiency, unspecified; Z82.49 Family history of ischemic heart disease and other diseases of the circulatory system; Z79.899 Other long term (current) drug therapy; Z79.82 Long term (current) use of aspirin; Z79.4 Long term (current) use of insulin; Z66 Do not resuscitate; Z74.01 Bed confinement status
CPT/HCPCS: 71010; 74176; 76705; 80048; 80053; 81001; 82962; 83036; 83605; 83690; 83735; 84100; 84145; 84439; 84443; 84484; 85025; 85610; 85730; 87040; 87077; 87086; 87186; 87641; 93005; 96365; 97161-GP; 99291; A9270-GY; G8978-CN-GP; G8979-CN-GP; G8980-CN-GP; J0360; J0692; J3370; P9047

== ENCOUNTER 2016-12-02 03:40 | Emergency (ER) | payer OTHER ==
[~2016-12-02 03:40] MED LIST changes: +HALF81 PO; +PROTONIX PO
[2016-12-02 03:50] LABS: BASOPHILS 0.1 %; BASOPHILS ABSOLUTE 0.01 10/3/uL (0.0-0.16); EOSINOPHILS 0.2 %; EOSINOPHILS ABSOLUTE 0.02 10/3/uL (0.0-0.53); ER CBC TAT 0 Hrs 05 Mins; IMMATURE GRANULOCYTES 0.1 %; IMMATURE GRANULOCYTES ABSOLUTE 0.01 10/3/uL (0.0-0.11); LYMPHOCYTES 15.7 %; LYMPHOCYTES ABSOLUTE 1.39 10/3/uL (0.67-4.30); MEAN CORPUS HGB CONC 33.1 g/dL (32.0-36.0); MEAN CORPUSCULAR HEMOGLOB 30.4 pg (26.0-34.0); MEAN CORPUSCULAR VOLUME 91.9 fL (80-100); MEAN PLATELET VOLUME 8.7 fL (9.2-13.0); MONOCYTES 4.8 %; MONOCYTES ABSOLUTE 0.42 10/3/uL (0.21-1.20); NEUTROPHILS 79.1 %; NEUTROPHILS ABSOLUTE 6.98 10/3/uL (2.02-8.40); PLATELET COUNT 319 10/3/uL (150-400); RBC DISTRIBUTION WIDTH 15.8 % (12.0-16.0); WHITE BLOOD CELLS 8.8 10/3/uL (4.5-10.5)
[2016-12-02 03:51] LABS: HEMATOCRIT 41.7 % (36.0-48.0); HEMOGLOBIN 13.8 g/dL (12.0-16.0); MANUAL DIFF NO %; RED CELL COUNT 4.54 10/6/uL (4.0-5.6)
[2016-12-02 03:59] LABS: ASCORBIC ACID (UR NOT ORDER) NEG (NEG); BILIRUBIN, URINE NEGATIVE (NEG); ER URINALYSIS TAT 0 Hrs 00 Mins; KETONE, URINE 20 MG/DL (NEG); LEUKOCYTE ESTERASE(NOT OR LARGE (NEG); NITRITE (URINE) NEG (NEG); WBC (NOT ORDERED) (RFLEX) 53 (0-5)
[2016-12-02 04:06] LABS: ALBUMIN 2.8 G/DL (3.5-5.0); CALCIUM, SERUM 9.2 MG/DL (8.5-10.4); CHLORIDE, SERUM 104 MMOL/L (96-112); CO2 (CARBON DIOXIDE) 26 MMOL/L (24-34); CREATININE 0.57 MG/DL (0.55-1.02); GFR AFRICAN AMERICAN 97 ML/MIN (>=60); GFR NON AFRICAN AMERICAN 84 ML/MIN (>=60); POTASSIUM, SERUM 3.6 MMOL/L (3.5-5.3); SGOT(AST) 18 U/L (5-40); SGPT(ALT) 11 U/L (5-65); SODIUM, SERUM 141 MMOL/L (135-148); TOTAL PROTEIN 8.1 G/DL (6.0-8.5); TROPONIN I <0.02 NG/ML (<0.05)
[2016-12-02 04:07] LABS: A/G RATIO 0.5 (0.7-1.9); ALKALINE PHOSPHATASE 97 U/L (45-117); BUN (BLOOD UREA NITROGEN) 14 MG/DL (6-23); GLOBULIN 5.3 G/DL (2.5-4.1); GLUCOSE, SERUM 217 MG/DL (60-99); TOTAL BILIRUBIN 0.3 MG/DL (0-1.2)
== END 2016-12-02 06:23 | disposition home or self-care (01) ==
LOC: ER 03:40
PROVIDERS: Emergency Medicine
DX: F03.90 Unspecified dementia, unspecified severity, without behavioral disturbance, psychotic disturbance, mood disturbance, and anxiety (principal); N39.0 Urinary tract infection, site not specified; I10 Essential (primary) hypertension; D64.9 Anemia, unspecified; E03.9 Hypothyroidism, unspecified; Z90.710 Acquired absence of both cervix and uterus; Z79.82 Long term (current) use of aspirin; Z79.4 Long term (current) use of insulin; Z79.899 Other long term (current) drug therapy
CPT/HCPCS: 71010; 80053; 81001; 84484; 85025; 87040; 87077; 87086; 87186; 96374; 96375; 99285